=== PATIENT | female | born 1935 | race Two or more races ===

== ENCOUNTER 2023-05-04 12:59 | Inpatient (IN) | payer OTHER ==
[~2023-05-04] VITALS: Ht 137.2 cm; Wt 59.0 kg
[2023-05-04] MEDS ORDERED: MELATONIN10 M2 (13:28)
[2023-05-04] MEDS ORDERED: SIMVASTATIN (13:29)
[2023-05-04] MEDS ORDERED: ZOLOFT100 MG (13:29)
[2023-05-04] MEDS ORDERED: MIRTAZAPINE45 M1 (13:29)
[2023-05-04] MEDS ORDERED: BUSPIRONE HCL7.5 MG (13:29)
[2023-05-04] MEDS ORDERED: NEURONTIN600 M1 (13:29)
[2023-05-04] MEDS ORDERED: NEURONTIN300 MG (13:29)
[2023-05-04] MEDS ORDERED: ABILIFY5 MG (13:30)
[2023-05-04] MEDS ORDERED: ISOSORBIDE MONO60 MG (13:30)
[2023-05-04] MEDS ORDERED: LOSARTAN POTASS50 MG (13:30)
[2023-05-04] MEDS ORDERED: TOPROL XL50 M1 (13:30)
[2023-05-04] MEDS ORDERED: LASIX20 MG (13:31)
[2023-05-04] MEDS ORDERED: ATROVENT HFA12.9 GM (13:31)
[2023-05-04] MEDS ORDERED: PANTOPRAZOLE SO40 MG (13:31)
[2023-05-04] MEDS ORDERED: DOCUSATE CALCI240 MG (13:31)
[2023-05-06] MEDS ORDERED: LEVOTHYROXINE50 MCG (13:23)
[2023-05-06] MEDS ORDERED: SIMVASTATIN20 MG (13:24)
== END 2023-05-07 18:48 | disposition home or self-care (01) | DRG 690 ==
LOC: ER 12:59 → MEDJ 22:07
PROVIDERS: ADMIT Internal Medicine; ATTEND Internal Medicine
PROC: BW24ZZZ Computerized Tomography (CT Scan) of Chest and Abdomen (ICD-10-PCS; principal; 2023-05-04)
DX: N39.0 Urinary tract infection, site not specified (principal); I11.0 Hypertensive heart disease with heart failure; I50.9 Heart failure, unspecified; R09.02 Hypoxemia; E87.6 Hypokalemia; Z74.01 Bed confinement status; Z20.822 Contact with and (suspected) exposure to COVID-19; B96.1 Klebsiella pneumoniae [K. pneumoniae] as the cause of diseases classified elsewhere

== ENCOUNTER 2024-10-30 03:18 | Emergency (ER) | payer OTHER ==
[~2024-10-30] VITALS: Ht 152.4 cm; Wt 54.4 kg
[~2024-10-30 03:18] MED LIST: ABILIFY5 MG; ATROVENT HFA12.9 GM; BUSPIRONE HCL7.5 MG; DOCUSATE CALCI240 MG; ISOSORBIDE MONO60 MG; LASIX20 MG; LEVOTHYROXINE50 MCG; LOSARTAN POTASS50 MG; MELATONIN10 M2; MIRTAZAPINE45 M1; NEURONTIN300 MG; NEURONTIN600 M1; PANTOPRAZOLE SO40 MG; SIMVASTATIN; SIMVASTATIN20 MG; TOPROL XL50 M1; ZOLOFT100 MG
[2024-10-30] MEDS ORDERED: 0.9 % SODIUM CHLORIDE 1,000 ML IV STA (05:07)
[2024-10-30] MEDS ORDERED: ONDANSETRON HCL 2 MG/ML VIAL IV STA (05:11)
[2024-10-30 06:15] LABS: HEMATOCRIT 36.2 % (36.0-45.00); HEMOGLOBIN 12.2 g/dL (12.0-15.00); MEAN CELL VOLUME 83.1 fL (80.00-100.00); MEAN CORPUSCULAR HEMOGLOBIN 28.1 pg (27.00-32.0); MEAN CORPUSCULAR HGB CONC 33.8 g/dl (32.0-36.0); RED BLOOD COUNT 4.36 M/uL (4.00-6.00); RED CELL DISTRIBUTION WIDTH 16.4 % (11.5-14.5)
[2024-10-30 06:22] LABS: PLATELET COUNT 119 K/uL (150-450)
[2024-10-30 06:30] LABS: PARTIAL THROMBOPLASTIN TIME 25.4 SECONDS (22.0-34.0); PROTHROMBIN TIME 10.9 SECONDS (9.0-11.5)
[2024-10-30 06:36] LABS: CALCIUM 9.6 mg/dL (8.5-10.1); CREATININE SERUM 0.9 mg/dL (0.55-1.02); GFR 59.09; POTASSIUM 4.4 mEq/L (3.5-5.1)
[2024-10-30] MEDS ORDERED: KETOROLAC TROMETHAMINE 30 MG VIAL IM STA (10:31)
[2024-10-30] MEDS ORDERED: ONDANSETRON HCL 2 MG/ML VIAL IM STA (11:09)
== END 2024-10-30 12:56 | disposition home or self-care (01) ==
LOC: ER 03:18
DX: S09.8XXA Other specified injuries of head, initial encounter (principal); W19.XXXA Unspecified fall, initial encounter; Y93.89 Activity, other specified; Y92.89 Other specified places as the place of occurrence of the external cause; Y99.8 Other external cause status
CPT/HCPCS: 36415; 70450; 71045; 72125; 72170; 73521; 96365; 96366; 96372; 99284; J1885; J2405 ×2; J7030